=== PATIENT | female | born 1980 | race African-American/Black ===

== ENCOUNTER 2019-04-21 16:18 | Emergency (ER) | payer OTHER, SELFPAY ==
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
[2019-04-21 16:27] VITALS: BP 123/74; PULSE 73; RESP 16; TEMP 37.6; O2SAT 100
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
[2019-04-21] MEDS: ACETAMINOPHEN 500 MG TABLET 1000 MG (18:23)
--- NOTE | 2019-04-21 18:23 | PC.NURSE ---
vrbo from JENNIFER Espinosa for tylenol 1000mg PO once
== END 2019-04-21 19:36 | disposition home or self-care (01) ==
PROVIDERS: Emergency Provider Emergency Medicine
DX: S06.0X0A Concussion without loss of consciousness, initial encounter (principal); F17.200 Nicotine dependence, unspecified, uncomplicated; V49.50XA Passenger injured in collision with unspecified motor vehicles in traffic accident, initial encounter
CPT/HCPCS: 70450; 99284; A9270

== ENCOUNTER 2021-08-27 23:05 | Emergency (ER) | payer OTHER, SELFPAY ==
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
[2021-08-27 23:09] VITALS: BP 138/76; PULSE 107; RESP 18; TEMP 36.5; O2SAT 100
[2021-08-27 23:10] VITALS: BP 138/76; PULSE 107; RESP 18; TEMP 36.5; O2SAT 100
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
[2021-08-27 23:52] VITALS: O2SAT 100
[2021-08-27 23:53] VITALS: BP 121/70; PULSE 90; RESP 18; O2SAT 100
== END 2021-08-28 00:09 | disposition home or self-care (01) ==
LOC: ANHED 23:55
PROVIDERS: Emergency Provider Emergency Medicine
DX: G44.309 Post-traumatic headache, unspecified, not intractable (principal); F07.81 Postconcussional syndrome; F17.200 Nicotine dependence, unspecified, uncomplicated
CPT/HCPCS: 70450; 99284

== ENCOUNTER 2022-05-12 21:19 | Emergency (ER) | payer OTHER, SELFPAY ==
--- NOTE | ~2022-05-12 | CT_ITS ---
Non-contrast Head CT History: Headache COMPARISON: 09/06/2021 Technique: Axial non-contrast imaging of the brain was performed. Dose reduction technique was used on this scan by utilizing automated exposure control and iterative reconstruction technique. The dose -length product (DLP) was 605.33 mGy-cm. Findings: There is no evidence of intracranial hemorrhage, mass lesion, or acute infarct. Brain par enchyma appears normal. The ventricles and subarachnoid spaces are normal in size. The calvarium ap pears normal. The visualized paranasal sinuses and mastoid air cells are clear. Impression: No significant abnormality seen. Reviewed, dictated and finalized at [facility]. 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
--- NOTE | ~2022-05-12 | CT_ITS ---
Noncontrast CT scan of the cervical spine Technique: Multiple contiguous axial [address] images of the cervical spine were obtained and rec onstructed in 2D sagittal and coronal planes on the acquisition scanner. Dose reduction technique was used on this scan by utilizing automated exposure control, adjustment of the mA and/or kV according to patient size. Clinical History: Pain Findings: No fractures or dislocations. There is reversal of the normal cervical lordosis. There is mild degenerative disc change at C4-C5, C5-C6, C6-C7. There is mild uncovertebral degenerative change at C4-C5 and C5-C6. No prevertebral soft tissue swelling. Impression: No fracture or subluxation of the cervical spine. Reviewed, dictated and finalized at [facility]. 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
[2022-05-12 21:21] VITALS: BP 132/92; PULSE 85; RESP 18; TEMP 36.5; O2SAT 100
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
[2022-05-13] MEDS: HYDROcodone/acetaminophen (*CRX) 10-325 MG TABLET 1 TAB PO (01:33)
[2022-05-13 03:09] VITALS: BP 122/78; PULSE 70; RESP 16; O2SAT 98
== END 2022-05-13 03:09 | disposition home or self-care (01) ==
PROVIDERS: Emergency Provider Physician Assistant
DX: S13.4XXA Sprain of ligaments of cervical spine, initial encounter (principal); G44.309 Post-traumatic headache, unspecified, not intractable; V43.52XA Car driver injured in collision with other type car in traffic accident, initial encounter; F17.200 Nicotine dependence, unspecified, uncomplicated
CPT/HCPCS: 70450; 72125; 99284; A9270